=== PATIENT | male | born 1945 | race Hispanic/Latino ===

== ENCOUNTER → 2017-08-18 | Outpatient (CLI) | payer MEDICARE, OTHER | END | disposition home or self-care (01) | LOC: OIH 12:08 | PROVIDERS: ATTEND Family Medicine | DX: M25.512 Pain in left shoulder (principal); M25.552 Pain in left hip | CPT/HCPCS: 73030; 73502 ==

== ENCOUNTER → 2017-09-09 | Outpatient (CLI) | payer OTHER | END | disposition home or self-care (01) | LOC: RAH 12:08 | PROVIDERS: ATTEND Family Medicine | DX: E11.42 Type 2 diabetes mellitus with diabetic polyneuropathy (principal); E11.51 Type 2 diabetes mellitus with diabetic peripheral angiopathy without gangrene; I73.9 Peripheral vascular disease, unspecified; I70.90 Unspecified atherosclerosis | CPT/HCPCS: 93925 ==

== ENCOUNTER → 2017-10-01 | Outpatient (CLI) | payer OTHER | END | disposition home or self-care (01) | LOC: RAH 08:23 | PROVIDERS: ATTEND Family Medicine | DX: M19.012 Primary osteoarthritis, left shoulder (principal); M06.4 Inflammatory polyarthropathy | CPT/HCPCS: 73221 ==

== ENCOUNTER → 2018-02-07 | Outpatient (CLI) | payer OTHER | END | disposition home or self-care (01) | LOC: OIH 12:29 | PROVIDERS: ATTEND Internal Medicine Cardiovascular Disease | DX: Z13.6 Encounter for screening for cardiovascular disorders (principal) | CPT/HCPCS: 75571 ==

== ENCOUNTER 2018-02-12 06:43 | Emergency (ER) | payer MEDICARE, OTHER ==
[2018-02-12] MEDS ORDERED: KETOROLAC TROMETHAMINE 30MG/ML ONE (07:34)
[2018-02-12 07:51] LABS: APPEARANCE,URINE Cloudy (CLEAR); BILIRUBIN,URINE Negative (NEGATIVE); COLOR,URINE Yellow (YELLOW); GLUCOSE, URINE (UA) >=1000 mg/dL (NEGATIVE); KETONES,URINE Negative (NEGATIVE); LEUKOCYTE ESTERASE ,URINE Small (NEGATIVE); NITRATE,URINE Negative (NEGATIVE); OCCULT BLOOD,URINE Negative (NEGATIVE); PH,URINE 5.5 (5.0-8.0); PROTEIN,URINE Negative (NEGATIVE)
[2018-02-12 07:56] LABS: BACTERIA,URINE Rare /HPF (None Seen); RBC,URINE 0-1 /HPF (0-1); SQUAMOUS EPITHELIAL CELL,UR Rare /HPF (0-2)
== END 2018-02-12 08:15 | disposition home or self-care (01) ==
LOC: EDH 06:43
DX: M79.605 Pain in left leg (principal); E11.9 Type 2 diabetes mellitus without complications; I10 Essential (primary) hypertension; Z88.6 Allergy status to analgesic agent; Z91.041 Radiographic dye allergy status; Z98.890 Other specified postprocedural states; Z87.891 Personal history of nicotine dependence
CPT/HCPCS: 81001; 96372; 99283; J1885

== ENCOUNTER 2018-12-31 01:45 | Inpatient (IN) | payer OTHER ==
[~2018-12-31] VITALS: Ht 167.6 cm; Wt 96.0 kg
[~2018-12-31 01:45] MED LIST: ATOR20TA65 PO; CEPH500B PO; CETI10TA57 PO; DUTA0.5C17 PO; EMPA10TA PO; LATA7.5D OP; METF-446 PO; METO50TA18 PO; PREG100C PO
[2018-12-31] MEDS ORDERED: ACETAMINOPHEN EXTRA STRENGTH 500 MG TABLET ONE (02:12)
[2018-12-31] MEDS ORDERED: SODIUM CHLORIDE 0.9% 1000ML 1,000 ML IV ONE (02:13)
[2018-12-31 02:22] LABS: HEMATOCRIT 44.1 % (42-54); MEAN CORPUSCULAR HEMOGLOBIN 29.6 pg (27.0-33.0); MEAN CORPUSCULAR HGB CONC 34.2 g/dL (32.0-36.0)
[2018-12-31 02:24] LABS: APPEARANCE,URINE Clear (CLEAR); BILIRUBIN,URINE Negative (NEGATIVE); COLOR,URINE Yellow (YELLOW); GLUCOSE, URINE (UA) Negative (NEGATIVE); KETONES,URINE Negative (NEGATIVE); LEUKOCYTE ESTERASE ,URINE Moderate (NEGATIVE); NITRATE,URINE Positive (NEGATIVE); OCCULT BLOOD,URINE Small (NEGATIVE); PROTEIN,URINE Trace mg/dL (NEGATIVE)
[2018-12-31] MEDS ORDERED: CEFTRIAXONE SODIUM 1 GM ONE (02:26)
[2018-12-31] MEDS ORDERED: SODIUM CHLORIDE 0.9% 50 ML IV ONE (02:26)
[2018-12-31 02:28] LABS: CARBON DIOXIDE 28 mmol/L (21-32); CHLORIDE 102 mmol/L (101-111); CREATININE 0.9 mg/dL (0.5-1.5); GLOMERULAR FILTR. RATE CALC 88 mL/min (>60); GLUCOSE,RANDOM 138 mg/dL (70-105); POTASSIUM 4.1 mmol/L (3.5-5.1); SODIUM SERUM 139 mmol/L (136-145); UREA NITROGEN, BLOOD 13 mg/dL (7-18)
[2018-12-31 02:31] LABS: BASOPHILS % (AUTO) 0.5 % (0.0-5.0); LYMPHOCYTES % (AUTO) 20.2 % (21.0-51.0); MEAN CORPUSCULAR VOLUME 86.6 fL (79-99); NEUTROPHILS % (AUTO) 69.3 % (40.0-77.0); PLATELET COUNT (AUTO) 197 K/uL (130-400); RED BLOOD CELL COUNT(AUTO) 5.09 MIL/uL (4.50-6.20); RED CELL DISTRIBUTION WIDTH 14.4 % (11.0-15.5); WHITE BLOOD COUNT (AUTO) 10.3 K/uL (4.8-10.8)
[2018-12-31 02:33] LABS: BACTERIA,URINE Many /HPF (None Seen)
[2018-12-31 02:33] LABS: INR 1.15 (0.85-1.15); PARTIAL THROMBOPLASTIN TIME 30.2 SEC (26.3-35.5)
[2018-12-31 02:39] LABS: ALANINE AMINOTRANSFERASE 28 U/L (12-78); ALBUMIN 4.1 g/dL (3.5-5.0); ASPARTATE AMINOTRANSFERASE 17 U/L (10-37); BILIRUBIN,TOTAL 0.7 mg/dL (0.2-1.0); CREATINE KINASE, TOTAL 57 U/L (21-232); MYOGLOBIN 35 ng/mL (10-92); TOTAL PROTEIN, SERUM 7.7 g/dL (6.0-8.3); TROPONIN I < 0.04 ng/mL (0.00-0.06)
[2018-12-31] MEDS ORDERED: LEVOFLOXACIN 750 MG/D5W 150 ML 150 ML ONE (03:03)
[2018-12-31] MEDS ORDERED: ONDANSETRON HCL 4 MG/2 ML VIAL IVP PRN (04:30)
[2018-12-31] MEDS ORDERED: GLUCAGON 1MG KIT 1 MG ML IM PRN (04:30)
[2018-12-31] MEDS ORDERED: DEXTROSE 50%-WATER 50 ML DISP.SYRIN IV PRN (04:30)
[2018-12-31] MEDS ORDERED: ACETAMINOPHEN 325 MG TAB PO PRN (04:30)
[2018-12-31] MEDS ORDERED: LACTATED RINGERS 1000ML 1,000 ML IV ONE (04:45)
[2018-12-31] MEDS: ZOSYN 3.375GM+NS 50ML 50 ML IV SCH ×3 (05:00→20:19)
[2018-12-31 05:07] VITALS: BP 114/63
[2018-12-31] MEDS: LACTATED RINGERS 1000ML 1,000 ML IV SCH ×2 (05:39→13:08)
[2018-12-31] MEDS: INSULIN R PO SS1 SQ SCH ×4 (06:35→20:50)
[2018-12-31] MEDS: IPRATROPIUM/ALBUTEROL SULFATE 3 ML SOLUTION IH SCH ×4 (07:05→23:20)
[2018-12-31 07:20] VITALS: BP 121/56
[2018-12-31] MEDS: PANTOPRAZOLE SODIUM 40 MG TABLET.DR PO SCH (09:57)
[2018-12-31] MEDS: ENOXAPARIN SODIUM 40 MG/0.4 ML SYRINGE SQ SCH (09:58)
[2018-12-31 11:20] VITALS: BP 136/56
[2018-12-31 15:00] VITALS: BP 134/68
--- NOTE | 2018-12-31 15:59 | NUR ---
cm note met with patient and states resides at home with spouse, independent and active at home. no dme. [facility]. states no dc needs. states he drives himself. Addendum: 12/31/18 at 1601 by NICOLASA ARITA CM Amended: Links added.
[2018-12-31 19:32] VITALS: BP 132/69
--- NOTE | 2018-12-31 20:19 | NUR ---
PT REFUSED RESTORIL BECAUSE HE HAS NEVER TAKEN IT BEFORE AND DOES NOT KNOW HOW HE WILL REACT TO MED. HE STATES HE HAS NO PROBLEM FALLING ASLEEP.
[2018-12-31] MEDS: TEMAZEPAM 15 MG CAPSULE PO SCH (20:28)
[2018-12-31 23:50] VITALS: BP 132/73
[2019-01-01] VITALS (7 sets, daily range): BP systolic 128–139; BP diastolic 62–88
[2019-01-01] MEDS: LEVOFLOXACIN 500 MG/D5W 100 ML 100 ML IV SCH (03:40)
[2019-01-01] MEDS: LACTATED RINGERS 1000ML 1,000 ML IV SCH ×4 (03:51→20:38)
[2019-01-01] MEDS: IPRATROPIUM/ALBUTEROL SULFATE 3 ML SOLUTION IH SCH ×4 (05:20→23:17)
[2019-01-01] MEDS: ZOSYN 3.375GM+NS 50ML 50 ML IV SCH ×3 (05:22→20:37)
[2019-01-01] MEDS: INSULIN R PO SS1 SQ SCH ×4 (06:23→21:00)
[2019-01-01] MEDS: PANTOPRAZOLE SODIUM 40 MG TABLET.DR PO SCH (09:12)
[2019-01-01] MEDS: ENOXAPARIN SODIUM 40 MG/0.4 ML SYRINGE SQ SCH (09:13)
[2019-01-01] MEDS ORDERED: GUAIFENESIN-DM 200/20 MG 10 ML PO PRN (10:30)
[2019-01-01] MEDS: TEMAZEPAM 15 MG CAPSULE PO SCH (20:39)
[2019-01-02] MEDS: LEVOFLOXACIN 500 MG/D5W 100 ML 100 ML IV SCH (02:28)
[2019-01-02 04:10] VITALS: BP 145/72
[2019-01-02 04:25] LABS: HEMATOCRIT 38.5 % (42-54); MEAN CORPUSCULAR HEMOGLOBIN 29.3 pg (27.0-33.0); MEAN CORPUSCULAR HGB CONC 34.1 g/dL (32.0-36.0); MEAN CORPUSCULAR VOLUME 85.9 fL (79-99); PLATELET COUNT (AUTO) 200 K/uL (130-400); RED BLOOD CELL COUNT(AUTO) 4.48 MIL/uL (4.50-6.20); RED CELL DISTRIBUTION WIDTH 14.4 % (11.0-15.5); WHITE BLOOD COUNT (AUTO) 7.1 K/uL (4.8-10.8)
[2019-01-02] MEDS: LACTATED RINGERS 1000ML 1,000 ML IV SCH ×2 (04:30→12:05)
[2019-01-02] MEDS: ZOSYN 3.375GM+NS 50ML 50 ML IV SCH ×3 (04:33→20:51)
[2019-01-02 04:39] LABS: CREATININE 0.9 mg/dL (0.5-1.5); POTASSIUM 3.7 mmol/L (3.5-5.1)
[2019-01-02] MEDS: INSULIN R PO SS1 SQ SCH ×4 (06:32→21:00)
[2019-01-02] MEDS: IPRATROPIUM/ALBUTEROL SULFATE 3 ML SOLUTION IH SCH ×4 (06:38→23:14)
[2019-01-02] MEDS: PANTOPRAZOLE SODIUM 40 MG TABLET.DR PO SCH (07:57)
[2019-01-02] MEDS: ENOXAPARIN SODIUM 40 MG/0.4 ML SYRINGE SQ SCH (07:58)
[2019-01-02 08:02] VITALS: BP 127/66
[2019-01-02 12:28] VITALS: BP 136/67
[2019-01-02 15:30] VITALS: BP 141/66
--- NOTE | 2019-01-02 17:09 | NUR ---
DR. Noah PEREZ IN ROOM SPEAKING WITH PT. AND SPOUSE AT BEDSIDE RE:(+) BLOOD CULTURES AND PLAN OF CARE; QUESTIONS ANSWERED BY DR. PEREZ.
[2019-01-02 20:27] VITALS: BP 133/64
[2019-01-02] MEDS: TEMAZEPAM 15 MG CAPSULE PO SCH (20:52)
--- NOTE | 2019-01-02 21:05 | NUR ---
PATIENT VOIDED, BLADDER SCAN OBTAINED, 15 ML NOTED BY SCAN.
[2019-01-02 23:55] VITALS: BP 145/69
[2019-01-03] MEDS: LEVOFLOXACIN 500 MG/D5W 100 ML 100 ML IV SCH (02:29)
--- NOTE | 2019-01-03 03:10 | NUR ---
PATIENT COMPLAIN OF URINATING SMALL AMOUNTS AND PAIN IN THE BLADDER REGION. BLADDER SCAN OBTAINED WITH RESULTS SHOWING 329 ML OF URINE IN BLADDER. PATIENT COMPLAINING OF PAIN RELATED TO INABILITY TO URINATE. PAGE SENT OUT, PETER HERNANDEZ IT NETWORK ENGINEER 0350 NO RETURN CALL AT THIS TIME, ANOTHER PAGE SENT. 0405-CALL RECEIVED FROM MARY GREEN, APPRAISED OF PATIENT'S COMPLAINT, ORDER RECEIVED TO IN AND OUT CATH TIMES ONE. 0415-PATIENT IN AND OUT CATH, USING STERILE TECHNIQUE, 525 ML OF URINE OBTAINED. PATIENT STATED RELIEF FROM BLADDER PAIN AT THIS TIME.
[2019-01-03 03:17] VITALS: BP 149/69
[2019-01-03] MEDS: ZOSYN 3.375GM+NS 50ML 50 ML IV SCH ×3 (05:06→20:33)
[2019-01-03] MEDS: INSULIN R PO SS1 SQ SCH ×4 (06:17→20:39)
[2019-01-03] MEDS: IPRATROPIUM/ALBUTEROL SULFATE 3 ML SOLUTION IH SCH ×4 (06:33→23:22)
[2019-01-03] MEDS: ENOXAPARIN SODIUM 40 MG/0.4 ML SYRINGE SQ SCH (07:57)
[2019-01-03] MEDS: PANTOPRAZOLE SODIUM 40 MG TABLET.DR PO SCH (07:57)
[2019-01-03 08:06] VITALS: BP 104/58
[2019-01-03 11:50] VITALS: BP 126/75
[2019-01-03 16:35] VITALS: BP 129/71
[2019-01-03 19:45] VITALS: BP 129/63
[2019-01-03] MEDS: TEMAZEPAM 15 MG CAPSULE PO SCH (20:34)
[2019-01-03 23:28] VITALS: BP 151/78
[2019-01-04] MEDS: LEVOFLOXACIN 500 MG/D5W 100 ML 100 ML IV SCH (02:04)
[2019-01-04 03:51] VITALS: BP 128/59
[2019-01-04 04:58] LABS: MEAN CORPUSCULAR HEMOGLOBIN 29.6 pg (27.0-33.0); MEAN CORPUSCULAR HGB CONC 34.2 g/dL (32.0-36.0); MEAN CORPUSCULAR VOLUME 86.7 fL (79-99); NUCLEATED RED BLOOD CELLS 0.1 % (0.0-0.19); PLATELET COUNT (AUTO) 224 K/uL (130-400); RED BLOOD CELL COUNT(AUTO) 4.38 MIL/uL (4.50-6.20); RED CELL DISTRIBUTION WIDTH 14.4 % (11.0-15.5); WHITE BLOOD COUNT (AUTO) 6.3 K/uL (4.8-10.8)
[2019-01-04] MEDS: ZOSYN 3.375GM+NS 50ML 50 ML IV SCH ×3 (04:58→20:52)
[2019-01-04 05:12] LABS: POTASSIUM 3.8 mmol/L (3.5-5.1)
[2019-01-04] MEDS: INSULIN R PO SS1 SQ SCH ×4 (05:47→21:02)
[2019-01-04] MEDS: IPRATROPIUM/ALBUTEROL SULFATE 3 ML SOLUTION IH SCH ×4 (06:33→23:24)
[2019-01-04 07:08] VITALS: BP 121/68
[2019-01-04] MEDS: ENOXAPARIN SODIUM 40 MG/0.4 ML SYRINGE SQ SCH (07:24)
[2019-01-04] MEDS: PANTOPRAZOLE SODIUM 40 MG TABLET.DR PO SCH (07:24)
--- NOTE | 2019-01-04 08:00 | NUR ---
ASSESSMENT PT IS AAOX4 DENIES CP DENIES SOB DENIES NV NO COMPLAINTS, BREATHING PATTERN IS EVEN AND UNLABORED. RESTING IN BED. CALL LIGHT WITHIN REACH.
[2019-01-04 11:38] VITALS: BP 134/70
[2019-01-04 15:28] VITALS: BP 130/75
--- NOTE | 2019-01-04 15:49 | NUR ---
2D ECHO AT BEDSIDE
--- NOTE | 2019-01-04 16:09 | NUR ---
RD NOTIFICATION DX: SEPSIS, UTI. HX: DM, HTN, HYPERLIPIDEMIA, KIDNEY STONES. DIET: 75GMCCD. PO INTAKE 50% AND HAS DECREASED APPETITE PER PT. HE STATED THAT HE DOEST LIKE THE FOOD FROM HERE. SAYS HE HAS BEEN EATING LESS SINCE ADMISSION. PT LOVES SWEETS AND EATS THEM AT HOME. HE TRIES TO HIDE THEM FROM HIS , PER PTS . USED TO BAKE BUT SHE STOPPED BECAUSE PT WAS GETTING OUT OF CONTROL. PT DOES NOT LIKE FOOD HERE BUT HE WILL EAT SANDWICHES AND SOUP. PT IS COMPLIANT WITH HIS MEDICATIONS. RD PROVIDED DIABETIC EDUCATION REINFORCEMENT. RD RECOMMENDS TO CONTINUE CURRENT DIET. OFFER GLUCERNA WHEN PT DOES NOT WANT TO EAT THE FOOD WE BRING HIM. HE IS WILLING TO TRY THEM. RD WILL CONTINUE TO MONITOR AND FOLLOW UP NEEDED. Addendum: 01/04/19 at [address] RD Amended: Links added.
--- NOTE | 2019-01-04 17:40 | NUR ---
STATUS RESTING IN BED DENIES PAIN NO COMPLAINTS AT THIS TIME, FAMILY IS AT BEDSIDE.
[2019-01-04 20:07] VITALS: BP 112/60
[2019-01-04] MEDS: TEMAZEPAM 15 MG CAPSULE PO SCH (20:52)
[2019-01-04 23:37] VITALS: BP 112/63
[2019-01-05] MEDS: LEVOFLOXACIN 500 MG/D5W 100 ML 100 ML IV SCH (03:07)
[2019-01-05 03:52] LABS: EOSINOPHILS % (AUTO) 5.3 % (0.0-8.0); HEMATOCRIT 36.4 % (42-54); MEAN CORPUSCULAR HEMOGLOBIN 29.8 pg (27.0-33.0); MEAN CORPUSCULAR HGB CONC 34.2 g/dL (32.0-36.0); MONOCYTES % (AUTO) 10.5 % (3.0-13.0); NEUTROPHILS % (AUTO) 48.2 % (40.0-77.0); NUCLEATED RED BLOOD CELLS 0.1 % (0.0-0.19); PLATELET COUNT (AUTO) 211 K/uL (130-400); RED BLOOD CELL COUNT(AUTO) 4.18 MIL/uL (4.50-6.20); RED CELL DISTRIBUTION WIDTH 14.3 % (11.0-15.5); WHITE BLOOD COUNT (AUTO) 5.8 K/uL (4.8-10.8)
[2019-01-05 04:08] LABS: CREATININE 0.9 mg/dL (0.5-1.5); MAGNESIUM 1.7 mg/dL (1.80-2.40); PHOSPHORUS 3.3 mg/dL (2.5-4.9); POTASSIUM 3.5 mmol/L (3.5-5.1)
[2019-01-05 04:28] VITALS: BP 124/69
[2019-01-05] MEDS: ZOSYN 3.375GM+NS 50ML 50 ML IV SCH ×3 (05:23→20:10)
[2019-01-05] MEDS: IPRATROPIUM/ALBUTEROL SULFATE 3 ML SOLUTION IH SCH ×4 (06:17→23:01)
[2019-01-05] MEDS: INSULIN R PO SS1 SQ SCH ×4 (06:37→21:10)
[2019-01-05] MEDS: PANTOPRAZOLE SODIUM 40 MG TABLET.DR PO SCH (07:18)
[2019-01-05] MEDS: ENOXAPARIN SODIUM 40 MG/0.4 ML SYRINGE SQ SCH (07:19)
[2019-01-05 07:23] VITALS: BP 116/65
--- NOTE | 2019-01-05 08:00 | NUR ---
ASSESSMENT PT IS AAOX4 DENIES CP DENIES SOB DENIES NV NO COMPLAINTS. CALL LIGHT WITHIN REACH.
--- NOTE | 2019-01-05 08:15 | NUR ---
AM ASSESSMENT PT LAYING IN BED, RESTING. SPOUS2 @ BEDSIDE. A/O X 3. NO SOB. NO DISTRESS NOTED. DENIES CHEST PAIN OR DISCOMFORT. DENIES PALPITATIONS. TELE: SR 90s. DENIES N/V AND/OR DIARRHEA. UP AD HEDY. PENDING FINAL BLOOD CX RESULTS FOR DC HOME. INSTRUCTED TO CALL FOR ASSISTANCE. CALL CARTER W/IN REACH.
[2019-01-05] MEDS ORDERED: TAMSULOSIN HCL 0.4 MG CAP.ER.24H PO SCH (09:45)
[2019-01-05 11:07] VITALS: BP 124/72
--- NOTE | 2019-01-05 14:15 | NUR ---
LARGE BM PATIENT HAD LARGE GREEN,SLIMY BM. ADELSO CARE RENDERED. PATIENT IN NO DISTRESS. RESTING IN BED. DOOR AJAR, CALL LIGHT WITHIN REACH.
[2019-01-05] MEDS ORDERED: ACET-66 PO (15:03)
[2019-01-05] MEDS ORDERED: ATOR20TA65 PO (15:03)
[2019-01-05] MEDS ORDERED: METF-446 PO (15:03)
[2019-01-05] MEDS ORDERED: DUTA0.5C17 PO (15:03)
[2019-01-05] MEDS ORDERED: PREG100C PO (15:03)
[2019-01-05] MEDS ORDERED: METO25TA6 PO (15:03)
[2019-01-05 15:26] VITALS: BP 119/63
[2019-01-05 19:00] VITALS: BP 145/78
[2019-01-05] MEDS: TEMAZEPAM 15 MG CAPSULE PO SCH (20:10)
[2019-01-05 23:00] VITALS: BP 126/59
[2019-01-06] MEDS: LEVOFLOXACIN 500 MG/D5W 100 ML 100 ML IV SCH (03:00)
[2019-01-06 03:49] VITALS: BP 142/70
--- NOTE | 2019-01-06 03:54 | NUR ---
Patient resting in bed. Visitor at bedside. Denies dysuria or urinary retention. Patient tolerating IV abx. No n/v/d. Denies chest pain or sob. Blood glucose elevated. Covered according to insulin ss. Will continue to monitor.
[2019-01-06] MEDS: ZOSYN 3.375GM+NS 50ML 50 ML IV SCH ×3 (05:23→20:25)
[2019-01-06] MEDS: IPRATROPIUM/ALBUTEROL SULFATE 3 ML SOLUTION IH SCH ×4 (06:24→23:21)
[2019-01-06] MEDS: INSULIN R PO SS1 SQ SCH ×4 (06:35→21:28)
[2019-01-06 07:41] VITALS: BP 126/70
[2019-01-06] MEDS: PANTOPRAZOLE SODIUM 40 MG TABLET.DR PO SCH (09:05)
[2019-01-06] MEDS: TAMSULOSIN HCL 0.4 MG CAP.ER.24H PO SCH (09:05)
[2019-01-06] MEDS: ENOXAPARIN SODIUM 40 MG/0.4 ML SYRINGE SQ SCH (09:07)
[2019-01-06 11:45] VITALS: BP 138/74
[2019-01-06 15:51] VITALS: BP 131/72
[2019-01-06 19:00] VITALS: BP 124/58
--- NOTE | 2019-01-06 19:50 | NUR ---
ASSESSMENT PATIENT IS RESTING IN BED. ALERT AND ORIENTED X4. NO COMPLAINTS OF PAIN. NO SIGNS OF DISTRESS. NO SHORTNESS OF BREATH. FAMILY AT BEDSIDE. CALL LIGHT AND BEDSIDE TABLE WITHIN REACH. PATIENT REINFORCED TO CALL FOR ANY NEEDS. NO QUESTIONS, CONCERNS, OR NEEDS VOICED AT THIS TIME.
[2019-01-06] MEDS: TEMAZEPAM 15 MG CAPSULE PO SCH (20:26)
[2019-01-06 23:00] VITALS: BP 132/69
[2019-01-07] MEDS: LEVOFLOXACIN 500 MG/D5W 100 ML 100 ML IV SCH (03:36)
[2019-01-07 04:00] VITALS: BP 141/68
[2019-01-07] MEDS: ZOSYN 3.375GM+NS 50ML 50 ML IV SCH ×2 (06:04→14:33)
[2019-01-07] MEDS: INSULIN R PO SS1 SQ SCH ×2 (06:10→11:20)
[2019-01-07] MEDS: IPRATROPIUM/ALBUTEROL SULFATE 3 ML SOLUTION IH SCH ×2 (06:46→11:12)
[2019-01-07 07:20] VITALS: BP 143/70
--- NOTE | 2019-01-07 08:15 | NUR ---
AM ASSESSMENT PT LAYING IN BED, HOB ELEVATED 30 DEGREES, WATCHING TV. SPOUSE @ BEDSIDE. A/O X 3. NO SOB. NO DISTRESS NOTED. DENIES CHEST PAIN OR DISCOMFORT. DENIES PALPITATIONS. TELE: SR 90-STACH 100s. DENIES N/V AND/OR DIARRHEA. UP AD HEDY. INSTRUCTED TO CALL FOR ASSISTANCE. CALL CARTER W/IN REACH.
[2019-01-07] MEDS: ENOXAPARIN SODIUM 40 MG/0.4 ML SYRINGE SQ SCH (08:21)
[2019-01-07] MEDS: PANTOPRAZOLE SODIUM 40 MG TABLET.DR PO SCH (08:21)
[2019-01-07] MEDS: TAMSULOSIN HCL 0.4 MG CAP.ER.24H PO SCH (08:21)
[2019-01-07 11:30] VITALS: BP 114/62
--- NOTE | 2019-01-07 15:30 | NUR ---
DISCHARGE VERBAL & WRITTEN DISCHARGE INSTRUCTIONS REVIEWED & GIVEN TO PT. QUESTIONS ENCOURAGED & CLARIFIED. PROPER CARE & MGT OF SEPSIS/UTI REVIEWED. NEW PRESCRIBED MEDICATION REVIEWED. PRESCRIPTION GIVEN TO PT; SIGNED COPY PLACED IN CHART. PT TO CONTINUE HOME MEDICATIONS. PT INFORMED TO F/U W/PCP IN 7-10 DAYS. IV DISCONTINUED. TELE RILEY REMOVED EARLIER. PT & SPOUSE TO GATHER PERSONAL BELONGINGS. WILL NOTIFY STAFF WHEN READY TO BE TAKEN TO PRIVATE VEHICLE.
--- NOTE | 2019-01-07 15:45 | NUR ---
DISCHARGE PT TAKEN TO PRIVATE VEHICLE VIA W BY Michaela BRUMFIELD PCP, ACCOMPANIED BY SPOUSE. NO DISTRESS NOTED.
== END 2019-01-07 15:45 | disposition home or self-care (01) | DRG 871 ==
LOC: EDH 01:45 → EDHIP 03:41 → 2DH 05:13
PROVIDERS: ADMIT Internal Medicine Pulmonary Disease; ATTEND Internal Medicine Pulmonary Disease
DX: A41.51 Sepsis due to Escherichia coli [E. coli] (principal); J18.9 Pneumonia, unspecified organism; N12 Tubulo-interstitial nephritis, not specified as acute or chronic; J40 Bronchitis, not specified as acute or chronic; E11.65 Type 2 diabetes mellitus with hyperglycemia; E78.5 Hyperlipidemia, unspecified; I10 Essential (primary) hypertension; N20.0 Calculus of kidney; Z79.84 Long term (current) use of oral hypoglycemic drugs; Z79.899 Other long term (current) drug therapy; Z88.6 Allergy status to analgesic agent; Z91.041 Radiographic dye allergy status
CPT/HCPCS: 36415; 71045; 71250; 74176; 80048; 80053; 81001; 82550; 82948; 83605; 83735; 83874; 84100; 84145; 84484; 85025; 85027; 85610; 85730; 87040; 87077; 87088; 87186; 87804; 93005; 93306; 94640; 94664; G0378; J0696; J1650; J1815; J1956; J2543; J7030; J7120

== ENCOUNTER → 2019-06-13 | Outpatient (CLI) | payer OTHER ==
[~2019-06-13] MED LIST changes: +ACET-66 PO; -CEPH500B PO; -CETI10TA57 PO; -DUTA0.5C17 PO; +DUTA0.5C18 PO; -EMPA10TA PO; -LATA7.5D OP; +METO25TA6 PO; -METO50TA18 PO
== END | disposition home or self-care (01) ==
LOC: OIH 16:20
PROVIDERS: ATTEND Family Medicine
DX: M47.26 Other spondylosis with radiculopathy, lumbar region (principal); M48.062 Spinal stenosis, lumbar region with neurogenic claudication; M25.78 Osteophyte, vertebrae
CPT/HCPCS: 72100

== ENCOUNTER → 2019-08-15 | Outpatient (CLI) | payer OTHER | END | disposition home or self-care (01) | LOC: OIH 12:14 | PROVIDERS: ATTEND Family Medicine | DX: M47.894 Other spondylosis, thoracic region (principal); M51.34 Other intervertebral disc degeneration, thoracic region; M41.84 Other forms of scoliosis, thoracic region; M25.551 Pain in right hip; M25.552 Pain in left hip; M54.5 Low back pain | CPT/HCPCS: 72070; 72100; 73521 ==

== ENCOUNTER → 2019-08-23 | Outpatient (CLI) | payer OTHER | END | disposition home or self-care (01) | LOC: SHCH 14:26 | PROVIDERS: ATTEND Internal Medicine Cardiovascular Disease | DX: I73.89 Other specified peripheral vascular diseases (principal) | CPT/HCPCS: 93925 ==

== ENCOUNTER → 2019-08-30 | Outpatient (CLI) | payer OTHER | END | disposition home or self-care (01) | LOC: SHCH 14:46 | PROVIDERS: ATTEND Internal Medicine Cardiovascular Disease | DX: I87.2 Venous insufficiency (chronic) (peripheral) (principal) | CPT/HCPCS: 93970 ==

== ENCOUNTER 2019-10-22 10:19 | Emergency (ER) | payer OTHER ==
[2019-10-22 11:07] LABS: BASOPHILS % (AUTO) 0.6 % (0.0-5.0); EOSINOPHILS % (AUTO) 3.1 % (0.0-8.0); HEMATOCRIT 42.1 % (42-54); LYMPHOCYTES % (AUTO) 30.7 % (21.0-51.0); MEAN CORPUSCULAR HEMOGLOBIN 28.1 pg (27.0-33.0); MEAN CORPUSCULAR VOLUME 85.1 fL (79-99); MONOCYTES % (AUTO) 7.9 % (3.0-13.0); NEUTROPHILS % (AUTO) 57.4 % (40.0-77.0); PLATELET COUNT (AUTO) 211 K/uL (130-400); RED BLOOD CELL COUNT(AUTO) 4.95 MIL/uL (4.50-6.20); RED CELL DISTRIBUTION WIDTH 13.6 % (11.0-15.5); WHITE BLOOD COUNT (AUTO) 6.7 K/uL (4.8-10.8)
[2019-10-22] MEDS ORDERED: ONDANSETRON HCL 4 MG/2 ML VIAL ONE (11:24)
[2019-10-22 11:50] LABS: APPEARANCE,URINE Clear (CLEAR); BILIRUBIN,URINE Negative (NEGATIVE); COLOR,URINE Dark Yellow (YELLOW); GLUCOSE, URINE (UA) >=1000 mg/dL (NEGATIVE); KETONES,URINE Negative (NEGATIVE); LEUKOCYTE ESTERASE ,URINE Negative (NEGATIVE); NITRATE,URINE Negative (NEGATIVE); OCCULT BLOOD,URINE Small (NEGATIVE); PROTEIN,URINE Negative (NEGATIVE)
[2019-10-22 11:54] LABS: INR 1.06 (0.85-1.15); PARTIAL THROMBOPLASTIN TIME 27.3 SEC (26.3-35.5); PROTHROMBIN TIME 11.4 SEC (9.6-11.6)
[2019-10-22 12:01] LABS: BACTERIA,URINE Rare /HPF (None Seen); RBC,URINE 0-1 /HPF (0-1); SQUAMOUS EPITHELIAL CELL,UR Rare /HPF (0-2); WBC,URINE 0-1 /HPF (0-1)
[2019-10-22 12:35] LABS: POTASSIUM 4.4 mmol/L (3.5-5.1)
[2019-10-22 12:39] LABS: ALBUMIN 3.9 g/dL (3.5-5.0); BILIRUBIN,DIRECT 0.1 mg/dL (0.0-0.3); BILIRUBIN,TOTAL 0.5 mg/dL (0.2-1.0); TOTAL PROTEIN, SERUM 7.5 g/dL (6.0-8.3)
== END 2019-10-22 13:45 | disposition home or self-care (01) ==
LOC: EDH 10:19
DX: A08.4 Viral intestinal infection, unspecified (principal); E11.9 Type 2 diabetes mellitus without complications; I10 Essential (primary) hypertension; Z88.8 Allergy status to other drugs, medicaments and biological substances; Z91.041 Radiographic dye allergy status
CPT/HCPCS: 36415; 80048; 80076; 81001; 82550; 83690; 84484; 85025; 85610; 85730; 93005; 96374; 99284; J2405

== ENCOUNTER 2020-04-29 13:30 | Inpatient (IN) | payer OTHER ==
[~2020-04-29] VITALS: Ht 167.6 cm; Wt 88.7 kg
[~2020-04-29 13:30] MED LIST changes: -DUTA0.5C18 PO; +DUTA0.5C37 PO
[2020-04-29 14:26] LABS: BASOPHILS % (AUTO) 0.1 % (0.0-5.0); HEMATOCRIT 47.9 % (42-54); LYMPHOCYTES % (AUTO) 7.3 % (21.0-51.0); MEAN CORPUSCULAR HEMOGLOBIN 28.2 pg (27.0-33.0); MEAN CORPUSCULAR VOLUME 85.4 fL (79-99); NEUTROPHILS % (AUTO) 90.2 % (40.0-77.0); PLATELET COUNT (AUTO) 309 K/uL (130-400); RED BLOOD CELL COUNT(AUTO) 5.61 MIL/uL (4.50-6.20); RED CELL DISTRIBUTION WIDTH 13.9 % (11.0-15.5); WHITE BLOOD COUNT (AUTO) 12.3 K/uL (4.8-10.8)
[2020-04-29 14:27] LABS: ABG BASE EXCESS -0.7 mmol/L (-2.0-3.0); ABG HCO3 22.6 mmol/L (21.0-28.0); ABG PCO2 34 mmHg (35-48)
[2020-04-29 14:36] LABS: INR 1.25 (0.85-1.15); PROTHROMBIN TIME 13.1 SEC (9.6-11.6)
[2020-04-29 14:37] LABS: PARTIAL THROMBOPLASTIN TIME 34.7 SEC (26.3-35.5)
[2020-04-29 14:38] LABS: CARBON DIOXIDE 25 mmol/L (21-32); CHLORIDE 98 mmol/L (101-111); CREATININE 1.3 mg/dL (0.5-1.5); GLOMERULAR FILTR. RATE CALC 57 mL/min (>60); GLUCOSE,RANDOM 394 mg/dL (70-105); POTASSIUM 4.5 mmol/L (3.5-5.1); SODIUM SERUM 135 mmol/L (136-145); UREA NITROGEN, BLOOD 23 mg/dL (7-18)
[2020-04-29] MEDS ORDERED: CEFTRIAXONE 1G VIAL ONE (14:41)
[2020-04-29 14:52] LABS: ALANINE AMINOTRANSFERASE 25 U/L (12-78); ALBUMIN 3.1 g/dL (3.5-5.0); ASPARTATE AMINOTRANSFERASE 31 U/L (10-37); BILIRUBIN,TOTAL 0.7 mg/dL (0.2-1.0); CREATINE KINASE, TOTAL 42 U/L (21-232); MYOGLOBIN 83 ng/mL (10-92); TOTAL PROTEIN, SERUM 8.5 g/dL (6.0-8.3); TROPONIN I < 0.04 ng/mL (0.00-0.06)
[2020-04-29 15:32] LABS: ERYTHROCYTE SEDIMENTATION RATE 80 MM/HR (0-20)
[2020-04-29] MEDS ORDERED: DEXAMETHASONE SOD PHOSPHATE 10MG/ML 1ML VIAL ONE (15:35)
[2020-04-29 16:39] LABS: APPEARANCE,URINE Clear (CLEAR); BILIRUBIN,URINE Negative (NEGATIVE); COLOR,URINE Yellow (YELLOW); GLUCOSE, URINE (UA) >=1000 mg/dL (NEGATIVE); KETONES,URINE >=80 mg/dL (NEGATIVE); LEUKOCYTE ESTERASE ,URINE Negative (NEGATIVE); NITRATE,URINE Negative (NEGATIVE); OCCULT BLOOD,URINE Negative (NEGATIVE); PROTEIN,URINE Trace mg/dL (NEGATIVE)
[2020-04-29 16:47] LABS: BACTERIA,URINE None Seen /HPF (None Seen); WBC,URINE 0-1 /HPF (0-1); YEAST,URINE BUDDING Few /HPF (None Seen)
[2020-04-29] MEDS ORDERED: ONDANSETRON 4MG INJ IV PRN (19:15)
[2020-04-29] MEDS ORDERED: LACTULOSE 20 GM/30 ML UDCUP PO PRN (19:15)
[2020-04-29] MEDS ORDERED: ACETAMINOPHEN 325 MG TAB PO PRN (19:15)
[2020-04-29] MEDS ORDERED: LIDOCAINE HCL-MPF 1% 2ML VIAL IV PRN (19:15)
[2020-04-29] MEDS ORDERED: MAG/ALUM/SIMETH 30 ML UDCUP PO PRN (19:15)
[2020-04-29] MEDS ORDERED: POTASSIUM CHLORIDE 20MEQ/100ML 100 ML IV PRN (19:15)
[2020-04-29] MEDS ORDERED: DEXAMETHASONE SOD PHOSPHATE 4 MG/ML 1ML VIAL IVP SCH (19:15)
[2020-04-29] MEDS ORDERED: ZOLPIDEM TARTRATE 5 MG TAB PO PRN (19:15)
[2020-04-29] MEDS ORDERED: ACETAMINOPHEN WITH CODEINE 1 TAB TAB PO PRN (19:15)
[2020-04-29] MEDS ORDERED: NITROGLYCERIN 0.4 MG SL TAB SL PRN (19:15)
[2020-04-29] MEDS ORDERED: DiphenhydrAMINE HCL 50 MG/ML VIAL IV PRN (19:15)
[2020-04-29] MEDS ORDERED: HYDRALAZINE 20MG/ML VIAL IV PRN (19:15)
[2020-04-29] MEDS ORDERED: DIPHENHYDRAMINE HCL 25 MG CAPSULE PO PRN (19:15)
[2020-04-29] MEDS ORDERED: MAGNESIUM 2GM PREMIX 50ML 50 ML IV PRN (19:15)
[2020-04-29] MEDS ORDERED: HYDROCODONE/ACETAMINOPHEN 5/325 MG TAB PO PRN (19:15)
[2020-04-29] MEDS ORDERED: DOXYCYCLINE 100MG+NS 250ML IV SCH (19:15)
[2020-04-29] MEDS ORDERED: MORPHINE 2 MG SYG IV PRN (19:15)
[2020-04-29] MEDS ORDERED: INSULIN HUMULIN R 100 UNIT/ML 3ML SQ SCH (21:00)
[2020-04-29] MEDS ORDERED: FAMOTIDINE 20MG TAB ONE (22:35)
[2020-04-29] MEDS ORDERED: DOXYCYCLINE 100MG+NS 250ML 250 ML IV ONE (22:36)
[2020-04-29] MEDS ORDERED: INSULIN HUMULIN R 100 UNIT/ML 3ML ONE (22:38)
[2020-04-30] MEDS ORDERED: INSU100I45 SQ (02:06)
[2020-04-30] MEDS ORDERED: PRED20TA3 PO (02:06)
[2020-04-30] MEDS ORDERED: TAMS-1 PO (02:06)
[2020-04-30] MEDS ORDERED: LATA2.5D15 OP (02:06)
[2020-04-30] MEDS ORDERED: PIOG30TA70 PO (02:06)
[2020-04-30] MEDS ORDERED: SIMV-43 PO (02:06)
[2020-04-30] MEDS ORDERED: LIRA0.6P SQ (02:06)
[2020-04-30 06:06] LABS: BASOPHILS % (AUTO) 0.1 % (0.0-5.0); HEMATOCRIT 41.7 % (42-54); LYMPHOCYTES % (AUTO) 11.4 % (21.0-51.0); MEAN CORPUSCULAR HEMOGLOBIN 28.6 pg (27.0-33.0); MEAN CORPUSCULAR HGB CONC 33.6 g/dL (32.0-36.0); MEAN CORPUSCULAR VOLUME 85.1 fL (79-99); MONOCYTES % (AUTO) 4.5 % (3.0-13.0); NEUTROPHILS % (AUTO) 83.5 % (40.0-77.0); PLATELET COUNT (AUTO) 304 K/uL (130-400); WHITE BLOOD COUNT (AUTO) 11.1 K/uL (4.8-10.8)
[2020-04-30 06:31] LABS: ALBUMIN 2.5 g/dL (3.5-5.0); BILIRUBIN,TOTAL 0.4 mg/dL (0.2-1.0); CRP QUANTITATIVE 172.9 mg/L (0.00-9.0); POTASSIUM 4.3 mmol/L (3.5-5.1); TOTAL PROTEIN, SERUM 7.2 g/dL (6.0-8.3)
[2020-04-30] MEDS: CEFTRIAXONE 1G VIAL IVP SCH ×3 (07:15→23:16)
[2020-04-30] MEDS: INSULIN HUMULIN R 100 UNIT/ML 3ML SQ SCH ×5 (07:30→23:20)
[2020-04-30] MEDS ORDERED: ENOXAPARIN SODIUM 100 MG/1 ML SQ ONE (07:54)
[2020-04-30] MEDS ORDERED: FAMOTIDINE 20MG TAB ONE (07:54)
[2020-04-30] MEDS ORDERED: DOXYCYCLINE 100MG+NS 250ML 250 ML IV ONE (07:55)
[2020-04-30] MEDS ORDERED: TAMSULOSIN HCL 0.4 MG CAP.ER.24H ONE (07:55)
[2020-04-30] MEDS ORDERED: CEFTRIAXONE 1G VIAL ONE (07:55)
[2020-04-30] MEDS ORDERED: INSULIN HUMULIN R 100 UNIT/ML 3ML ONE ×3 (07:56→17:10)
[2020-04-30] MEDS: TAMSULOSIN HCL 0.4 MG CAP.ER.24H PO SCH (09:00)
[2020-04-30] MEDS ORDERED: ENOXAPARIN SODIUM 100 MG/1 ML SQ SCH (09:00)
[2020-04-30] MEDS: FAMOTIDINE 20MG TAB PO SCH (09:00)
[2020-04-30] MEDS: DOXYCYCLINE 100MG+NS 250ML 250 ML IV SCH ×3 (09:00→23:17)
[2020-04-30] MEDS ORDERED: HYDROCODONE/ACETAMINOPHEN 5/325 MG TAB ONE (14:22)
[2020-04-30] MEDS: SOLU-MEDROL 40MG VIAL IVP SCH ×2 (14:57→23:16)
[2020-04-30] MEDS ORDERED: PHARMACY COMMUNICATION MISC SCH (17:00)
[2020-04-30] MEDS: SIMVASTATIN 20 MG TABLET PO SCH (17:00)
[2020-04-30] MEDS ORDERED: SIMVASTATIN 10 MG TABLET ONE (17:09)
[2020-04-30] MEDS ORDERED: LATANOPROST 2.5 ML DROPS OP SCH (21:00)
[2020-04-30 22:00] VITALS: BP 156/79
[2020-04-30] MEDS: GUAIFENESIN-DM 200/20 MG 10 ML PO PRN (23:17)
[2020-05-01] VITALS (7 sets, daily range): BP systolic 126–144; BP diastolic 59–82
[2020-05-01] MEDS: GUAIFENESIN-DM 200/20 MG 10 ML PO PRN (03:26)
[2020-05-01 05:43] LABS: BASOPHILS % (AUTO) 0.1 % (0.0-5.0); HEMATOCRIT 41.7 % (42-54); MEAN CORPUSCULAR HEMOGLOBIN 29.5 pg (27.0-33.0); MEAN CORPUSCULAR HGB CONC 34.8 g/dL (32.0-36.0); MEAN CORPUSCULAR VOLUME 84.9 fL (79-99); MONOCYTES % (AUTO) 2.4 % (3.0-13.0); NEUTROPHILS % (AUTO) 88.6 % (40.0-77.0); PLATELET COUNT (AUTO) 371 K/uL (130-400); RED BLOOD CELL COUNT(AUTO) 4.91 MIL/uL (4.50-6.20); WHITE BLOOD COUNT (AUTO) 11.3 K/uL (4.8-10.8)
[2020-05-01] MEDS: SOLU-MEDROL 40MG VIAL IVP SCH ×3 (05:55→21:32)
[2020-05-01 06:33] LABS: ALBUMIN 2.4 g/dL (3.5-5.0); BILIRUBIN,TOTAL 0.5 mg/dL (0.2-1.0); CRP QUANTITATIVE 93.7 mg/L (0.00-9.0); POTASSIUM 4.1 mmol/L (3.5-5.1); TOTAL PROTEIN, SERUM 7.2 g/dL (6.0-8.3)
[2020-05-01 06:45] LABS: ABG BASE EXCESS 0.7 mmol/L (-2.0-3.0); ABG OXYGEN SATURATION 95.7 % (95.0-99.0); ABG PCO2 35 mmHg (35-48)
[2020-05-01] MEDS: CEFTRIAXONE 1G VIAL IVP SCH ×3 (07:15→20:30)
[2020-05-01] MEDS: INSULIN HUMULIN R 100 UNIT/ML 3ML SQ SCH ×4 (07:24→21:35)
[2020-05-01] MEDS: FAMOTIDINE 20MG TAB PO SCH (08:50)
[2020-05-01] MEDS: DOXYCYCLINE 100MG+NS 250ML 250 ML IV SCH ×2 (08:50→20:30)
[2020-05-01] MEDS: TAMSULOSIN HCL 0.4 MG CAP.ER.24H PO SCH (08:50)
[2020-05-01] MEDS: ENOXAPARIN SODIUM 60 MG/0.6 ML SQ SCH (08:51)
[2020-05-01] MEDS ORDERED: PHARMACY COMMUNICATION MISC SCH (10:15)
[2020-05-01] MEDS ORDERED: COMPOUND IV REFRIGERATED 1 EACH IVSOLN MISC PRN (14:00)
[2020-05-01] MEDS ORDERED: REMDESIVIR (EUA) 520 200 MG in 0.9% NACL 250ML 250 ML IV ONE (14:00)
[2020-05-01] MEDS: SIMVASTATIN 20 MG TABLET PO SCH (16:27)
[2020-05-01] MEDS: LATANOPROST 2.5 ML DROPS OP SCH (21:49)
[2020-05-02 03:56] VITALS: BP 114/80
[2020-05-02 05:10] LABS: BASOPHILS % (AUTO) 0.1 % (0.0-5.0); LYMPHOCYTES % (AUTO) 10.1 % (21.0-51.0); MEAN CORPUSCULAR HEMOGLOBIN 28.7 pg (27.0-33.0); MEAN CORPUSCULAR HGB CONC 33.5 g/dL (32.0-36.0); MEAN CORPUSCULAR VOLUME 85.8 fL (79-99); MONOCYTES % (AUTO) 3.9 % (3.0-13.0); PLATELET COUNT (AUTO) 350 K/uL (130-400); RED BLOOD CELL COUNT(AUTO) 5.01 MIL/uL (4.50-6.20); RED CELL DISTRIBUTION WIDTH 14.1 % (11.0-15.5); WHITE BLOOD COUNT (AUTO) 10.9 K/uL (4.8-10.8)
[2020-05-02 05:48] LABS: ALBUMIN 2.4 g/dL (3.5-5.0); BILIRUBIN,TOTAL 0.4 mg/dL (0.2-1.0); CRP QUANTITATIVE 58.9 mg/L (0.00-9.0); POTASSIUM 4.2 mmol/L (3.5-5.1); TOTAL PROTEIN, SERUM 7.1 g/dL (6.0-8.3)
[2020-05-02] MEDS ORDERED: REMDESIVIR LABS MISC SCH (06:00)
[2020-05-02] MEDS: SOLU-MEDROL 40MG VIAL IVP SCH ×3 (06:42→21:32)
[2020-05-02] MEDS: INSULIN HUMULIN R 100 UNIT/ML 3ML SQ SCH ×4 (06:44→21:23)
[2020-05-02 08:00] VITALS: BP 135/68
[2020-05-02] MEDS ORDERED: DRONABINOL 2.5 MG CAP PO ONE (08:00)
[2020-05-02] MEDS: TAMSULOSIN HCL 0.4 MG CAP.ER.24H PO SCH (08:34)
[2020-05-02] MEDS: FAMOTIDINE 20MG TAB PO SCH (08:35)
[2020-05-02] MEDS: DOXYCYCLINE 100MG+NS 250ML 250 ML IV SCH ×2 (08:35→21:10)
[2020-05-02] MEDS: CEFTRIAXONE 1G VIAL IVP SCH ×2 (08:35→21:10)
[2020-05-02] MEDS: ENOXAPARIN SODIUM 60 MG/0.6 ML SQ SCH (08:37)
[2020-05-02 12:00] VITALS: BP 153/67
[2020-05-02] MEDS: REMDESIVIR (EUA) 520 100 MG in 0.9% NACL 250ML 250 ML IV SCH (14:53)
[2020-05-02 16:00] VITALS: BP 131/72
[2020-05-02] MEDS: SIMVASTATIN 20 MG TABLET PO SCH (16:28)
[2020-05-02 19:59] VITALS: BP 162/70
[2020-05-02] MEDS: LATANOPROST 2.5 ML DROPS OP SCH (21:11)
[2020-05-02 23:55] VITALS: BP 134/79
[2020-05-03] MEDS: ACETAMINOPHEN 325 MG TAB PO PRN ×2 (00:27→06:37)
[2020-05-03 03:35] VITALS: BP 133/64
[2020-05-03 04:47] LABS: CREATININE 0.9 mg/dL (0.5-1.5); CRP QUANTITATIVE 45.7 mg/L (0.00-9.0); POTASSIUM 4.7 mmol/L (3.5-5.1)
[2020-05-03 05:12] LABS: ABG BASE EXCESS -0.3 mmol/L (-2.0-3.0); ABG HCO3 22.7 mmol/L (21.0-28.0); ABG OXYGEN SATURATION 90.6 % (95.0-99.0); ABG PCO2 33 mmHg (35-48)
[2020-05-03 05:56] LABS: HEMATOCRIT 42.9 % (42-54); MEAN CORPUSCULAR HEMOGLOBIN 29.1 pg (27.0-33.0); MEAN CORPUSCULAR HGB CONC 34.3 g/dL (32.0-36.0); RED BLOOD CELL COUNT(AUTO) 5.05 MIL/uL (4.50-6.20); RED CELL DISTRIBUTION WIDTH 13.8 % (11.0-15.5); WHITE BLOOD COUNT (AUTO) 12.5 K/uL (4.8-10.8)
[2020-05-03] MEDS: SOLU-MEDROL 40MG VIAL IVP SCH ×3 (06:27→21:52)
[2020-05-03 07:27] LABS: ALANINE AMINOTRANSFERASE 22 U/L (12-78); ALBUMIN 2.4 g/dL (3.5-5.0); ASPARTATE AMINOTRANSFERASE 40 U/L (10-37); BILIRUBIN,DIRECT < 0.1 mg/dL (0.0-0.3); BILIRUBIN,TOTAL 0.6 mg/dL (0.2-1.0); TOTAL PROTEIN, SERUM 7.2 g/dL (6.0-8.3)
[2020-05-03] MEDS: INSULIN HUMULIN R 100 UNIT/ML 3ML SQ SCH ×4 (07:30→22:05)
[2020-05-03] MEDS: DOXYCYCLINE 100MG+NS 250ML 250 ML IV SCH ×2 (09:37→21:51)
[2020-05-03] MEDS: ENOXAPARIN SODIUM 60 MG/0.6 ML SQ SCH (09:40)
[2020-05-03] MEDS: CEFTRIAXONE 1G VIAL IVP SCH ×2 (09:40→21:52)
[2020-05-03] MEDS: FAMOTIDINE 20MG TAB PO SCH (09:40)
[2020-05-03] MEDS: TAMSULOSIN HCL 0.4 MG CAP.ER.24H PO SCH (09:40)
[2020-05-03] MEDS ORDERED: ACETAMINOPHEN 650 MG/20.3 ML UDCUP PEG PRN (09:45)
[2020-05-03 12:25] VITALS: BP 160/72
[2020-05-03] MEDS: REMDESIVIR (EUA) 520 100 MG in 0.9% NACL 250ML 250 ML IV SCH (14:30)
[2020-05-03] MEDS: SIMVASTATIN 20 MG TABLET PO SCH (16:58)
[2020-05-03 17:44] VITALS: BP 155/80
[2020-05-03] MEDS ORDERED: ACETAMINOPHEN 325 MG/10.15ML UDCUP PO PRN (17:45)
[2020-05-03 19:00] VITALS: BP 134/67
[2020-05-03] MEDS: NYSTATIN 100000 UNIT/ML 5ML UDCUP PO SCH (21:52)
[2020-05-03] MEDS: LATANOPROST 2.5 ML DROPS OP SCH (21:53)
[2020-05-04] VITALS: BP 132/84
[2020-05-04 04:00] VITALS: BP 141/64
[2020-05-04] MEDS: SOLU-MEDROL 40MG VIAL IVP SCH ×3 (05:47→21:26)
[2020-05-04] MEDS: NYSTATIN 100000 UNIT/ML 5ML UDCUP PO SCH ×3 (05:47→21:19)
[2020-05-04] MEDS: INSULIN HUMULIN R 100 UNIT/ML 3ML SQ SCH ×4 (06:23→21:29)
[2020-05-04 06:53] LABS: HEMATOCRIT 44.1 % (42-54); MEAN CORPUSCULAR HEMOGLOBIN 28.7 pg (27.0-33.0); MEAN CORPUSCULAR HGB CONC 33.6 g/dL (32.0-36.0); MEAN CORPUSCULAR VOLUME 85.6 fL (79-99); RED BLOOD CELL COUNT(AUTO) 5.15 MIL/uL (4.50-6.20); WHITE BLOOD COUNT (AUTO) 15.8 K/uL (4.8-10.8)
[2020-05-04 07:21] LABS: ALBUMIN 2.3 g/dL (3.5-5.0); BILIRUBIN,TOTAL 0.6 mg/dL (0.2-1.0); CREATININE 0.8 mg/dL (0.5-1.5); POTASSIUM 4.4 mmol/L (3.5-5.1); TOTAL PROTEIN, SERUM 6.7 g/dL (6.0-8.3)
[2020-05-04 07:49] LABS: HEMATOCRIT 45.7 % (42-54); MEAN CORPUSCULAR HEMOGLOBIN 28.7 pg (27.0-33.0); MEAN CORPUSCULAR HGB CONC 33.5 g/dL (32.0-36.0); MEAN CORPUSCULAR VOLUME 85.7 fL (79-99); RED BLOOD CELL COUNT(AUTO) 5.33 MIL/uL (4.50-6.20); RED CELL DISTRIBUTION WIDTH 13.9 % (11.0-15.5)
[2020-05-04 08:00] VITALS: BP 155/81
[2020-05-04 08:17] LABS: POTASSIUM 4.1 mmol/L (3.5-5.1)
[2020-05-04] MEDS: TAMSULOSIN HCL 0.4 MG CAP.ER.24H PO SCH (09:22)
[2020-05-04] MEDS: CEFTRIAXONE 1G VIAL IVP SCH (09:22)
[2020-05-04] MEDS: DOXYCYCLINE 100MG+NS 250ML 250 ML IV SCH (09:22)
[2020-05-04] MEDS: ENOXAPARIN SODIUM 60 MG/0.6 ML SQ SCH (09:22)
[2020-05-04] MEDS: FAMOTIDINE 20MG TAB PO SCH (09:22)
[2020-05-04 12:00] VITALS: BP 146/65
[2020-05-04] MEDS: REMDESIVIR (EUA) 520 100 MG in 0.9% NACL 250ML 250 ML IV SCH (15:07)
[2020-05-04 16:00] VITALS: BP 144/65
[2020-05-04] MEDS: SIMVASTATIN 20 MG TABLET PO SCH (17:14)
[2020-05-04 19:00] VITALS: BP 141/71
[2020-05-04] MEDS: INSULIN GLARGINE 100 UNITS/ML 10 ML VIAL SQ SCH (21:29)
[2020-05-04] MEDS: LATANOPROST 2.5 ML DROPS OP SCH (21:53)
[2020-05-05] VITALS: BP 155/83
[2020-05-05 04:00] VITALS: BP 164/72
[2020-05-05] MEDS: NYSTATIN 100000 UNIT/ML 5ML UDCUP PO SCH ×3 (05:35→21:01)
[2020-05-05 05:49] LABS: HEMATOCRIT 43.6 % (42-54); MEAN CORPUSCULAR HEMOGLOBIN 28.5 pg (27.0-33.0); MEAN CORPUSCULAR HGB CONC 33.5 g/dL (32.0-36.0); RED BLOOD CELL COUNT(AUTO) 5.13 MIL/uL (4.50-6.20); RED CELL DISTRIBUTION WIDTH 13.8 % (11.0-15.5); WHITE BLOOD COUNT (AUTO) 15.3 K/uL (4.8-10.8)
[2020-05-05 05:59] LABS: CREATININE 0.9 mg/dL (0.5-1.5); MAGNESIUM 2.4 mg/dL (1.80-2.40); POTASSIUM 4.1 mmol/L (3.5-5.1)
[2020-05-05] MEDS: SOLU-MEDROL 40MG VIAL IVP SCH ×3 (06:47→22:49)
[2020-05-05] MEDS: INSULIN HUMULIN R 100 UNIT/ML 3ML SQ SCH ×4 (06:51→21:00)
[2020-05-05 08:00] VITALS: BP 160/79
[2020-05-05] MEDS: FAMOTIDINE 20MG TAB PO SCH (11:05)
[2020-05-05] MEDS: TAMSULOSIN HCL 0.4 MG CAP.ER.24H PO SCH (11:05)
[2020-05-05] MEDS: ENOXAPARIN SODIUM 60 MG/0.6 ML SQ SCH (11:06)
[2020-05-05 12:00] VITALS: BP 154/74
[2020-05-05 14:07] LABS: ALBUMIN 2.3 g/dL (3.5-5.0); BILIRUBIN,DIRECT 0.2 mg/dL (0.0-0.3); BILIRUBIN,TOTAL 1.7 mg/dL (0.2-1.0); TOTAL PROTEIN, SERUM 6.6 g/dL (6.0-8.3)
[2020-05-05] MEDS: REMDESIVIR (EUA) 520 100 MG in 0.9% NACL 250ML 250 ML IV SCH (15:44)
[2020-05-05 16:00] VITALS: BP 150/73
[2020-05-05] MEDS: SIMVASTATIN 20 MG TABLET PO SCH (16:09)
[2020-05-05 19:00] VITALS: BP 160/79
[2020-05-05] MEDS: INSULIN GLARGINE 100 UNITS/ML 10 ML VIAL SQ SCH (21:31)
[2020-05-05] MEDS: LATANOPROST 2.5 ML DROPS OP SCH (21:50)
[2020-05-06] VITALS: BP 143/74
[2020-05-06 04:00] VITALS: BP 126/63
[2020-05-06] MEDS: NYSTATIN 100000 UNIT/ML 5ML UDCUP PO SCH ×3 (04:42→21:00)
[2020-05-06 05:37] LABS: MEAN CORPUSCULAR HEMOGLOBIN 27.6 pg (27.0-33.0); MEAN CORPUSCULAR VOLUME 86.5 fL (79-99); RED BLOOD CELL COUNT(AUTO) 5.32 MIL/uL (4.50-6.20); RED CELL DISTRIBUTION WIDTH 14.2 % (11.0-15.5); WHITE BLOOD COUNT (AUTO) 16.2 K/uL (4.8-10.8)
[2020-05-06 05:56] LABS: POTASSIUM 4.5 mmol/L (3.5-5.1)
[2020-05-06] MEDS: SOLU-MEDROL 40MG VIAL IVP SCH ×3 (06:57→22:02)
[2020-05-06] MEDS: INSULIN HUMULIN R 100 UNIT/ML 3ML SQ SCH ×4 (07:01→22:05)
[2020-05-06 08:51] LABS: ABG BASE EXCESS -0.1 mmol/L (-2.0-3.0); ABG HCO3 23.4 mmol/L (21.0-28.0); ABG OXYGEN SATURATION 95.7 % (95.0-99.0); ABG PCO2 35 mmHg (35-48)
[2020-05-06] MEDS: TAMSULOSIN HCL 0.4 MG CAP.ER.24H PO SCH (08:56)
[2020-05-06] MEDS: FAMOTIDINE 20MG TAB PO SCH (08:56)
[2020-05-06] MEDS: ENOXAPARIN SODIUM 60 MG/0.6 ML SQ SCH (08:56)
[2020-05-06 08:57] VITALS: BP 136/69
[2020-05-06] MEDS: DOXYCYCLINE HYCLATE 100 MG TABLET PO SCH ×2 (11:42→21:59)
[2020-05-06 11:45] VITALS: BP 159/84
[2020-05-06 15:33] VITALS: BP 141/72
[2020-05-06] MEDS: SIMVASTATIN 20 MG TABLET PO SCH (16:13)
[2020-05-06 20:03] VITALS: BP 130/73
[2020-05-06] MEDS: LATANOPROST 2.5 ML DROPS OP SCH (21:00)
[2020-05-06] MEDS: INSULIN GLARGINE 100 UNITS/ML 10 ML VIAL SQ SCH (22:07)
[2020-05-07] VITALS: BP 144/70
[2020-05-07 04:11] VITALS: BP 157/82
[2020-05-07] MEDS: NYSTATIN 100000 UNIT/ML 5ML UDCUP PO SCH ×3 (04:33→20:21)
[2020-05-07 05:21] LABS: MAGNESIUM 2.7 mg/dL (1.80-2.40); POTASSIUM 4.9 mmol/L (3.5-5.1)
[2020-05-07] MEDS: SOLU-MEDROL 40MG VIAL IVP SCH ×3 (05:36→22:00)
[2020-05-07] MEDS: INSULIN HUMULIN R 100 UNIT/ML 3ML SQ SCH ×4 (05:40→20:30)
[2020-05-07] MEDS: TAMSULOSIN HCL 0.4 MG CAP.ER.24H PO SCH (08:00)
[2020-05-07] MEDS: FAMOTIDINE 20MG TAB PO SCH (08:00)
[2020-05-07] MEDS: DOXYCYCLINE HYCLATE 100 MG TABLET PO SCH ×2 (08:00→20:21)
[2020-05-07] MEDS: ENOXAPARIN SODIUM 60 MG/0.6 ML SQ SCH ×2 (08:01→12:12)
[2020-05-07 08:28] VITALS: BP 157/82
[2020-05-07 09:20] LABS: ABG BASE EXCESS -0.9 mmol/L (-2.0-3.0); ABG HCO3 22.1 mmol/L (21.0-28.0); ABG OXYGEN SATURATION 95.9 % (95.0-99.0); ABG PCO2 33 mmHg (35-48)
[2020-05-07 13:38] VITALS: BP_SYST 139; BP_SYST 19; BP_DIAS 77; BP_DIAS 90
[2020-05-07 16:00] VITALS: BP 142/80
[2020-05-07] MEDS: SIMVASTATIN 20 MG TABLET PO SCH (16:51)
[2020-05-07 20:10] VITALS: BP 103/53
[2020-05-07] MEDS: INSULIN GLARGINE 100 UNITS/ML 10 ML VIAL SQ SCH (20:37)
[2020-05-07] MEDS: LATANOPROST 2.5 ML DROPS OP SCH (20:38)
[2020-05-08] VITALS: BP 145/77
[2020-05-08 04:08] VITALS: BP 129/82
[2020-05-08 04:33] LABS: HEMATOCRIT 44.2 % (42-54); MEAN CORPUSCULAR HGB CONC 32.8 g/dL (32.0-36.0); MEAN CORPUSCULAR VOLUME 85.5 fL (79-99); RED BLOOD CELL COUNT(AUTO) 5.17 MIL/uL (4.50-6.20); RED CELL DISTRIBUTION WIDTH 14.2 % (11.0-15.5); WHITE BLOOD COUNT (AUTO) 23.8 K/uL (4.8-10.8)
[2020-05-08 04:47] LABS: CREATININE 1.1 mg/dL (0.5-1.5); POTASSIUM 4.4 mmol/L (3.5-5.1)
[2020-05-08] MEDS: NYSTATIN 100000 UNIT/ML 5ML UDCUP PO SCH ×3 (05:00→20:21)
[2020-05-08] MEDS: SOLU-MEDROL 40MG VIAL IVP SCH ×3 (05:21→21:03)
[2020-05-08] MEDS: INSULIN HUMULIN R 100 UNIT/ML 3ML SQ SCH ×4 (06:58→21:03)
[2020-05-08 08:00] VITALS: BP 129/87
[2020-05-08] MEDS: FAMOTIDINE 20MG TAB PO SCH (09:00)
[2020-05-08] MEDS: DOXYCYCLINE HYCLATE 100 MG TABLET PO SCH ×2 (09:00→20:21)
[2020-05-08] MEDS: TAMSULOSIN HCL 0.4 MG CAP.ER.24H PO SCH (09:00)
[2020-05-08 12:00] VITALS: BP 152/90
[2020-05-08] MEDS ORDERED: Vitamin B Complex/Vit C/Folic Acid PO SCH (14:16)
[2020-05-08 16:00] VITALS: BP 106/72
[2020-05-08] MEDS: SIMVASTATIN 20 MG TABLET PO SCH (17:00)
[2020-05-08 20:00] VITALS: BP 125/72
[2020-05-08] MEDS: INSULIN GLARGINE 100 UNITS/ML 10 ML VIAL SQ SCH (21:00)
[2020-05-08] MEDS: LATANOPROST 2.5 ML DROPS OP SCH (21:03)
[2020-05-09] VITALS: BP 140/83
[2020-05-09] MEDS: NYSTATIN 100000 UNIT/ML 5ML UDCUP PO SCH ×2 (03:03→12:16)
[2020-05-09 04:00] VITALS: BP 133/79
[2020-05-09] MEDS: SOLU-MEDROL 40MG VIAL IVP SCH (06:35)
[2020-05-09] MEDS: INSULIN HUMULIN R 100 UNIT/ML 3ML SQ SCH ×3 (06:38→12:30)
[2020-05-09] MEDS: TAMSULOSIN HCL 0.4 MG CAP.ER.24H PO SCH (09:00)
[2020-05-09] MEDS: DOXYCYCLINE HYCLATE 100 MG TABLET PO SCH (09:00)
[2020-05-09] MEDS: FAMOTIDINE 20MG TAB PO SCH (09:00)
[2020-05-09 09:06] VITALS: BP 165/90
[2020-05-09 12:14] VITALS: BP 140/88
== END 2020-05-09 13:29 | disposition hospice, inpatient (51) | DRG 177 ==
LOC: EDH 13:30 → EDHIP 19:04 → 4AH 04-30 21:32
PROVIDERS: ADMIT Internal Medicine Pulmonary Disease; ATTEND Internal Medicine Pulmonary Disease
PROC: 5A0935A Assistance with Respiratory Ventilation, Less than 24 Consecutive Hours, High Flow/Velocity Cannula (ICD-10-PCS; 2020-04-30)
PROC: XW033E5 Introduction of Remdesivir Anti-infective into Peripheral Vein, Percutaneous Approach, New Technology Group 5 (ICD-10-PCS; principal; 2020-05-01)
PROC: 5A0935A Assistance with Respiratory Ventilation, Less than 24 Consecutive Hours, High Flow/Velocity Cannula (ICD-10-PCS; 2020-05-01)
PROC: 5A0935A Assistance with Respiratory Ventilation, Less than 24 Consecutive Hours, High Flow/Velocity Cannula (ICD-10-PCS; 2020-05-02)
PROC: 5A0935A Assistance with Respiratory Ventilation, Less than 24 Consecutive Hours, High Flow/Velocity Cannula (ICD-10-PCS; 2020-05-03)
PROC: 5A0935A Assistance with Respiratory Ventilation, Less than 24 Consecutive Hours, High Flow/Velocity Cannula (ICD-10-PCS; 2020-05-04)
PROC: 5A0945A Assistance with Respiratory Ventilation, 24-96 Consecutive Hours, High Flow/Velocity Cannula (ICD-10-PCS; 2020-05-05)
PROC: 5A09357 Assistance with Respiratory Ventilation, Less than 24 Consecutive Hours, Continuous Positive Airway Pressure (ICD-10-PCS; 2020-05-07)
PROC: 5A09457 Assistance with Respiratory Ventilation, 24-96 Consecutive Hours, Continuous Positive Airway Pressure (ICD-10-PCS; 2020-05-08)
DX: U07.1 COVID-19 (principal); J96.01 Acute respiratory failure with hypoxia; J12.82 Pneumonia due to coronavirus disease 2019; G93.6 Cerebral edema; I50.30 Unspecified diastolic (congestive) heart failure; G81.91 Hemiplegia, unspecified affecting right dominant side; I13.0 Hypertensive heart and chronic kidney disease with heart failure and stage 1 through stage 4 chronic kidney disease, or unspecified chronic kidney disease; R47.01 Aphasia; I62.9 Nontraumatic intracranial hemorrhage, unspecified; Z51.5 Encounter for palliative care; Z66 Do not resuscitate; N18.30 Chronic kidney disease, stage 3 unspecified; E11.22 Type 2 diabetes mellitus with diabetic chronic kidney disease; E66.9 Obesity, unspecified; E78.5 Hyperlipidemia, unspecified; N40.0 Benign prostatic hyperplasia without lower urinary tract symptoms; Z68.32 Body mass index [BMI] 32.0-32.9, adult; Z79.4 Long term (current) use of insulin; Z87.442 Personal history of urinary calculi; Z88.6 Allergy status to analgesic agent; Z91.041 Radiographic dye allergy status
CPT/HCPCS: 36415; 36600; 70450; 71045; 80048; 80053; 80076; 81001; 82550; 82728; 82803; 82948; 83605; 83615; 83735; 83874; 83880; 84145; 84484; 85025; 85027; 85378; 85610; 85651; 85730; 86140; 86850; 86900; 86901; 87040; 87088; 87426; 93005; 93970; 94660; G0378; J0696; J1100; J1650; J1815; J2920; J3490; J7050; Q0167

== ENCOUNTER 2020-05-09 13:30 | Inpatient (IN) | payer OTHER ==
[~2020-05-09] VITALS: Ht 170.2 cm; Wt 88.7 kg
[~2020-05-09 13:30] MED LIST changes: +INSU100I45 SQ; +LATA2.5D15 OP; +LIRA0.6P SQ; +PIOG30TA70 PO; +PRED20TA3 PO; +SIMV-43 PO; +TAMS-1 PO
[2020-05-09 19:00] VITALS: BP 126/85
[2020-05-09] MEDS ORDERED: ONDANSETRON 4MG INJ IVP PRN (19:45)
[2020-05-09] MEDS ORDERED: MORPHINE 2 MG SYG IVP PRN ×3 (19:45)
[2020-05-09] MEDS ORDERED: LORAZEPAM 2 MG/ML 1 ML VIAL IVP PRN (19:45)
[2020-05-09] MEDS ORDERED: GLYCOPYRROLATE 1 MG/5 ML SYRINGE IV PRN (19:45)
[2020-05-09] MEDS ORDERED: ACETAMINOPHEN 650 MG SUPPOSITORY RC PRN (19:45)
[2020-05-09] MEDS ORDERED: BISACODYL 10 MG SUPP.RECT RC PRN (19:45)
== END 2020-05-10 12:45 | disposition expired | DRG 177 ==
LOC: 4AH 13:30
PROVIDERS: ADMIT Internal Medicine; ATTEND Internal Medicine
PROC: 5A09357 Assistance with Respiratory Ventilation, Less than 24 Consecutive Hours, Continuous Positive Airway Pressure (ICD-10-PCS; principal; 2020-05-09)
DX: U07.1 COVID-19 (principal); J96.01 Acute respiratory failure with hypoxia; G93.6 Cerebral edema; I62.9 Nontraumatic intracranial hemorrhage, unspecified; G81.91 Hemiplegia, unspecified affecting right dominant side; R47.01 Aphasia; Z51.5 Encounter for palliative care; Z66 Do not resuscitate; E66.9 Obesity, unspecified; R53.81 Other malaise; E11.9 Type 2 diabetes mellitus without complications; Z68.30 Body mass index [BMI] 30.0-30.9, adult; Z88.6 Allergy status to analgesic agent; Z91.041 Radiographic dye allergy status; Z79.4 Long term (current) use of insulin; Z79.899 Other long term (current) drug therapy
CPT/HCPCS: 94660; G0378